=== PATIENT | male | born 1965 | race Caucasian/White ===

== ENCOUNTER 2017-04-02 14:31 | Emergency (ER) | payer OTHER ==
[2017-04-02 14:37] VITALS: BP 155/99
== END 2017-04-02 15:12 | disposition home or self-care (01) ==
LOC: ED 14:31
DX: H60.92 Unspecified otitis externa, left ear (principal); F17.200 Nicotine dependence, unspecified, uncomplicated

== ENCOUNTER 2018-06-20 12:55 | Emergency (ER) | payer SELFPAY ==
[~2018-06-20] VITALS: Ht 175.3 cm; Wt 85.3 kg
[2018-06-20 12:58] VITALS: BP 138/64; Ht 175.3 cm; Wt 85.3 kg
== END 2018-06-20 13:30 | disposition home or self-care (01) ==
LOC: ED 12:55
DX: H60.93 Unspecified otitis externa, bilateral (principal); I10 Essential (primary) hypertension; F17.210 Nicotine dependence, cigarettes, uncomplicated; Z98.890 Other specified postprocedural states
CPT/HCPCS: J1885